=== PATIENT | female | born 1955 | race Caucasian/White ===

== ENCOUNTER 2020-07-29 02:51 | Inpatient (IN) ==
--- NOTE | 2020-07-29 03:16 | ERNOTE ---
Dizziness ER Record Presenting Symptoms: dizziness Time Seen by Provider: 07/29/20 03:01 Source: patient Exam Limitations: no limitations Immunizations: IMMUNIZATION HX Immunizations Up to Date Yes Immunizations Comment Covid History of Influenza Vaccine Yes Hx Pneumococcal Vaccination No Allergies/Adverse Reactions: Allergies Allergy/AdvReac Type Severity Reaction Status Date / Time aspirin Allergy Severe Other Verified 07/29/20 08:11 naproxen sodium [From Aleve] Allergy Severe Anaphylaxis Verified 07/29/20 08:11 NSAIDS (Non-Steroidal Allergy Severe Other Verified 07/29/20 08:11 Anti-Inflamma lisinopril AdvReac Mild Other Verified 07/29/20 08:11 Home Medications: HOME MEDICATIONS losartan 50 mg tablet 50 mg PO DAILY #90 tab 01/24/20 [Last Taken Unknown] - History of Present Illness Narrative: Patient awoke feeling like she needed to use the bathroom but was extremely dizzy. She woke her to help her to the bathroom she began getting naus eous and so dizzy and weak she could not stand. She states initially her hands were tingly bilaterally Timing and Duration: sudden onset Noted on awakening:: Yes Severity: max: severe Severity: currently: mild, moderate Associated Symptoms: Present: nausea Sense of movement: Present: vague Fainted/near fainted while:: Present: sitting Decreased ability to stand/walk:: Present: weak Review of Systems - Review of Systems Constitutional: Present: chills. Absent: recent illness EYE: Absent: vision changes ENT: Absent: nose congestion, nasal drainage Respiratory: Absent: shortness of breath Cardiology: Absent: chest pain Gastrointestinal/Abdominal: Present: nausea, vomiting Genitourinary: Absent: dysuria Musculoskeletal: Absent: back pain, muscle pain, neck pain Skin: Absent: rash Neurological: Present: See HPI. Absent: headache Endocrine: Present: excessive sweating Hematologic/Lymphatic: Absent: easy bruising, easy bleeding Medical History (Last Reviewed 07/29/20 @ 08:10 by Kvng Loco RN) COVID-19 vaccine series completed (Acute) COVID-19 vaccine administered (Acute) Hypertension (Chronic) Onset Date: Unknown Gastroesophageal reflux (Resolved) Onset Date: Unknown Depression (Resolved) Onset Date: Unknown Anxiety (Resolved) Onset Date: Unknown Disorder of endometrium Onset Date: Unknown abnormal appearance Surgical History: Surgical History (Last Reviewed 07/29/20 @ 08:10 by Kvng Loco RN) H/O breast biopsy Onset Date: ~2001 Left breast; benign H/O colonoscopy Onset Date: ~10/2005 WNL H/O hand surgery Onset Date: Unknown cyst removed from left hand History of dilation and curettage Onset Date: ~01/27/16 Dr. Prado FULFILLMENT REPRESENTATIVE bleeding History of hysteroscopy Onset Date: ~01/27/16 Dr. Cain FULFILLMENT REPRESENTATIVE bleeding History of tubal ligation Onset Date: ~1974 also uterine suspension done History of uterine suspension procedure Onset Date: ~1974 Family History: Family History (Last Reviewed 07/29/20 @ 08:10 by Kvng Loco RN) Father , age 78 CHF (congestive heart failure) Brother , infant No problems noted. Brother , age 18 Suicide Sister , age 44 Cancer breast Social History: (Last Reviewed 07/29/20 @ 08:10 by Kvng Loco RN) Social History: adopted: No Marital status: lives independently: Yes household members: spouse current occupational status: employed current occupation: [employer] Highest level of school completed/degree received: high school graduate Service: No Tobacco: Smoking Status: Current every day smoker Alcohol: alcohol intake: current alcohol intake frequency: 3 or more drinks per day Substance Use: substance use type: unknown Dietary Habits: caffeine: Yes Exercise: Physical activity type: walking Physical activity counseling: advised >150 min/week exe How many days of moderate to strenuous exercise, like a brisk walk, did you do in the last 7 days: 7 frequency: daily On those days that you engage in moderate to strenuous exercise, how many minutes, on average, do you exercise: 45 duration: 30-45 minutes/day Physical Exam - Physical Exam General Appearance: Present: wd/wn, alert, mild distress Head Exam: Present: normal inspection, no evidence of injury Eye Exam: Normal inspection: bilateral, PERRL: bilateral, EOMI: bilateral Ears, Nose, Throat: Present: normal ENT inspection Neck: Present: normal inspection, nontender, supple Respiratory: Present: no respiratory distress, normal breath sounds, lungs clear Cardiovascular/Chest: Present: regular rate, rhythm, no murmur Gastrointestinal/Abdominal: Present: normal bowel sounds, nontender, no ndistended, soft Extremity Exam: Present: normal inspection, normal range of motion, no edema Neurological Exam: Present: alert, oriented, normal mood/affect, no motor/sensory deficits, 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 Results and Orders: Laboratory Tests 07/29/20 07/29/20 03:40 03:40 WBC 9.9 Hgb 15.8 Hct 48.3 H Plt Count 193 Sodium 140 Potassium 4.0 Chloride 106 Carbon Dioxide 26.3 BUN 22 Creatinine 1.05 Random Glucose 137 H Calcium 8.6 Total Bilirubin 0.4 AST 13 ALT 16 L Ethyl Alcohol Less than 3.0 - Vital Signs Patient's Vital Signs:: I have reviewed the patient's vital signs. Vital Signs: Vital Signs 07/29/20 02:56 Temperature 35.6 C L Pulse Rate 56 L Respiratory Rate 16 Blood Pressure 92/53 O2 Sat by Pulse Oximetry 91 L - EKG EKG #1 EKG: NSR - bradycardia, premature ventricular contraction, other - prolonged QT 479/ QTc 477 ms EKG #2 EKG: NSR - bradycardia 56 bpm, other - QT 440 EKG read: Interp. by me - CT/Ultrasound CT/Ultrasound Narrative: CT head without: 1. No intracranial hemorrhage, mass-effect or midline shift noted. 2. No acute cerebral edema/infarct noted. 3. No skull fracture noted. 4. No acute sinusitis or mastoiditis noted. - Progress/Reassessment Progress Note-Subjective: 07/29/20 06:[address] Mcleod he agrees with observation admit for hypotension and dizziness. Departure Clinical Impression: Dizziness Hypotension Qualifiers: Hypotension type: unspecified hypotension type Qualified Code(s): I95.9 - Hypotension, unspecified - Departure Disposition: Still a patient Condition: Good
[2020-07-29 03:43] LABS: Hematocrit 48.3 % (37.0-47.0); Hemoglobin 15.8 gm/dL (12.5-16.0); Mean Cell Volume 104.1 fl (78-100); Mean Corpuscular Hemoglobin 34.1 pg (27-31); Mean Corpuscular Hgb Conc 32.7 g/dl (32-36); Mean Platelet Volume 11.3 fl (8-12.5); Neutrophil # 7.4 K/mm3 (1.3-6.0); Platelet Count 193 K/mm3 (150-450); Red Blood Count 4.64 M/mm3 (4.2-5.4); Red Cell Distribution Width 13.5 % (11.5-14.0); White Blood Count 9.9 K/mm3 (4.0-10.5)
[2020-07-29 03:58] LABS: ALT 16 U/L (19-67); AST 13 U/L (0-48); Albumin * 3.5 gm/dl (3.4-5.0); Alkaline Phosphatase * 94 U/L (50-170); Anion Gap 11.7 mmol/L (6.8-13.8); Bilirubin, Total 0.4 mg/dL (0.0-1.1); Blood Urea Nitrogen 22 mg/dL (3-23); Ca. Corrected For Albumin 8.7 mg/dL (8.4-10.2); Calcium * 8.6 mg/dL (7.9-10.9); Carbon Dioxide 26.3 mmol/L (24-32.6); Chloride 106 mmol/L (97-106); Glucose * 137 mg/dL (70-110); Sodium 140 mmol/L (132-142); Total Protein 6.6 gm/dL (6.2-8.2)
[2020-07-29] MEDS ORDERED: NORMAL SALINE 1,000 ML IV ONE ×2 (04:11→05:15)
[2020-07-29 05:56] LABS: Urine Bilirubin Negative (NEGATIVE); Urine Ketone Negative (NEGATIVE); Urine Nitrite Negative (NEGATIVE); Urine Protein 15 mg/dL (NEGATIVE); Urine Specific Gravity 1.015 SP.GR. (1.005-1.010); Urine Urobilinogen Normal (NORMAL); Urine pH 6.5 pH (5.0-7.0)
[2020-07-29 06:09] LABS: Cocaine Ur Negative (NEGATIVE); Urine Barbiturate Negative (NEGATIVE); Urine Benzodiazepines Negative (NEGATIVE); Urine Opiates Negative (NEGATIVE); Urine PCP Negative (NEGATIVE); Urine THC Negative (NEGATIVE)
[2020-07-29 06:10] LABS: Urine Appearance Clear (CLEAR); Urine Blood 10 /ul (NEGATIVE); Urine Color Yellow; Urine WBC None Seen /hpf (0-5)
[2020-07-29 06:11] LABS: Urine Bacteria None Seen; Urine RBC TRACE /hpf (0-5)
--- NOTE | 2020-07-29 08:56 | HP ---
Chief Complaint - Chief Complaint Date of Service: 07/29/20 Time of Service: 08:55 Chief Complaint: dizziness History of Present Illness: Belen Hayward is a 65-year-old white female with past medical history of hypertension who was admitted on 07/29/2020 for severe dizziness. The patient awoke around 1 AM in the morning to go to the bathroom and she started feeling dizzy and flushed. She went back to her bed and laid down. Her was going to the bathroom too and she asked him to help her go to the bathroom and she urinated . She felt like she was going to pass out and her surrounding was getting cloudy. She said she felt her hands were itchy. She felt also nauseous and felt so weak so much so she could not stand. They called EMS and they found her on the floor with low blood pressure and low heart rate. They gave her Zofran for nausea and in the emergency room she was given IV fluids. She denied any chest pains, palpitations, slurring of speech, focal weakness, abdominal pain but admitted to diaphoresis. Her white blood cell count was normal, hemoglobin of 15.8, MCV of 104, platelet of 193, electrolytes were normal, creatinine 1.05 with a GFR of 56, random blood sugar 137, liver function test within normal limits, urinalysis showed no evidence of urinary tract infection. She had a large bowel movement in the emergency room and did not case streak of blood. Her stool for occult blood was positive. She was admitted for observation and further evaluation. Medical History (Last Reviewed 07/29/20 @ 08:10 by Kvng Loco RN) COVID-19 vaccine series completed (Acute) COVID-19 vaccine administered (Acute) Hypertension (Chronic) Onset Date: Unknown Gastroesophageal reflux (Resolved) Onset Date: Unknown Depression (Resolved) Onset Date: Unknown Anxiety (Resolved) Onset Date: Unknown Disorder of endometrium Onset Date: Unknown abnormal appearance Surgical History: Surgical History (Last Reviewed 07/29/20 @ 08:10 by Kvng Loco RN) H/O breast biopsy Onset Date: ~2001 Left breast; benign H/O colonoscopy Onset Date: ~10/2005 WNL H/O hand surgery Onset Date: Unknown cyst removed from left hand History of dilation and curettage Onset Date: ~01/27/16 Dr. Ssteffensmeier MASTER GLAZIER bleeding History of hysteroscopy Onset Date: ~01/27/16 Dr. Cain MASTER GLAZIER bleeding History of tubal ligation Onset Date: ~1974 also uterine suspension done History of uterine suspension procedure Onset Date: ~1974 Family History: Family History (Last Reviewed 07/29/20 @ 08:10 by Kvng Loco RN) Father , age 78 CHF (congestive heart failure) Brother , infant No problems noted. Brother , age 18 Suicide Sister , age 44 Cancer breast Social History: (Last Reviewed 07/29/20 @ 08:10 by Kvng Loco RN) Social History: adopted: No Marital status: lives independently: Yes household members: spouse current occupational status: employed current occupation: director of plant operations Highest level of school completed/degree received: high school graduate Service: No Tobacco: Smoking Status: Current every day smoker Alcohol: alcohol intake: current alcohol intake frequency: 3 or more drinks per day Substance Use: substance use type: unknown Dietary Habits: caffeine: Yes Exercise: Physical activity type: walking Physical activity counseling: advised >150 min/week exe How many days of moderate to strenuous exercise, like a brisk walk, did you do in the last 7 days: 7 frequency: daily On those days that you engage in moderate to strenuous exercise, how many minutes, on average, do you exercise: 45 duration: 30-45 minutes/day Review Of Systems (GEN) - Review of Systems Generalized/Overall Review: Present: Weakness. Absent: Chills, Fever EENTM: Present: Blurred Vision Respiratory: Absent: Cough, Shortness of Breath, Orthopnea Cardiac: Absent: Chest Pain, Edema, Palpitations Abdominal: Present: Nausea, Other - blood streaked stool. Absent: Vomiting, Hematemesis Genitourinary: Absent: Urgency, Frequency Musculoskeletal: Absent: Joint Pain Neurological: Absent: Headache Misc: All systems neg except as marked Immunizations: IMMUNIZATION HX Immunizations Up to Date Yes Immunizations Comment Covid History of Influenza Vaccine Yes Hx Pneumococcal Vaccination No Allergies/Adverse Reactions: Allergies Allergy/AdvReac Type Severity Reaction Status Date / Time aspirin Allergy Severe Other Verified 07/29/20 08:11 naproxen sodium [From Aleve] Allergy Severe Anaphylaxis Verified 07/29/20 08:11 NSAIDS (Non-Steroidal Allergy Severe Other Verified 07/29/20 08:11 Anti-Inflamma lisinopril AdvReac Mild Other Verified 07/29/20 08:11 Home Medications: HOME MEDICATIONS losartan 50 mg tablet 50 mg PO DAILY #90 tab 01/24/20 [Last Taken Unknown] Exam - Exam Vital Signs: Vital Signs - Last Taken Temp 37.1 C 07/29/20 08:12 Pulse 87 07/29/20 08:12 Resp 20 07/29/20 08:12 BP 115/83 07/29/20 08:12 Pulse Ox 100 07/29/20 08:12 Constitutional: Present: Alert, Oriented x3, Cooperative ENT Exam: Present: hearing grossly normal Eye Exam: bilateral eye: normal inspection, PERRL, EOMI Neck: Present: supple. 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 Absent: facial droop, motor weakness, sensory deficit Diagnostic Studies: Abnormal Lab Results 07/29/20 07/29/20 07/29/20 Range/Units 03:40 03:40 04:55 Hct 48.3 H (37.0-47.0) % MCV 104.1 H (78-100) fl MCH 34.1 H (27-31) pg Immature Gran % (Auto) 0.50 H (0.001-0.429) % Immature Gran # (Auto) 0.05 H (0.000-0.0310) K/mm3 Neutrophils # 7.4 H (1.3-6.0) K/mm3 Est GFR (Non-Af Amer) 56 L D (60-130) mL/min Random Glucose 137 H (70-110) mg/dL ALT 16 L (19-67) U/L Urine Protein (NEGATIVE) mg/dL Urine Blood (NEGATIVE) /ul Stool Occult Blood Positive H 07/29/20 Range/Units 05:30 Hct (37.0-47.0) % MCV (78-100) fl MCH (27-31) pg Immature Gran % (Auto) (0.001-0.429) % Immature Gran # (Auto) (0.000-0.0310) K/mm3 Neutrophils # (1.3-6.0) K/mm3 Est GFR (Non-Af Amer) (60-130) mL/min Random Glucose (70-110) mg/dL ALT (19-67) U/L Urine Protein 15 H (NEGATIVE) mg/dL Urine Blood 10 H (NEGATIVE) /ul Stool Occult Blood Laboratory Results WBC 9.9 K/mm3 (4.0-10.5) 07/29/20 03:40 RBC 4.64 M/mm3 (4.2-5.4) 07/29/20 03:40 Hgb 15.8 gm/dL (12.5-16.0) 07/29/20 03:40 Hct 48.3 % (37.0-47.0) H 07/29/20 03:40 MCV 104.1 fl (78-100) H 07/29/20 03:40 MCH 34.1 pg (27-31) H 07/29/20 03:40 MCHC 32.7 g/dl (32-36) 07/29/20 03:40 RDW 13.5 % (11.5-14.0) 07/29/20 03:40 Plt Count 193 K/mm3 (150-450) 07/29/20 03:40 MPV 11.3 fl (8-12.5) 07/29/20 03:40 Immature Gran % (Auto) 0.50 % (0.001-0.429) H 07/29/20 03:40 Immature Gran # (Auto) 0.05 K/mm3 (0.000-0.0310) H 07/29/20 03:40 Neutrophils % 75.0 % (42-75.0) 07/29/20 03:40 Lymphocytes % 20.4 % (20-51) 07/29/20 03:40 Monocytes % 3.1 % (0.0-9) 07/29/20 03:40 Eosinophils % 0.8 % (0.0-3.0) 07/29/20 03:40 Basophils % 0.2 % (0.0-1.0) 07/29/20 03:40 Nucleated RBC % 0.0 k/mm3 (0-1) 07/29/20 03:40 Neutrophils # 7.4 K/mm3 (1.3-6.0) H 07/29/20 03:40 Lymphocytes # 2.01 k/mm3 (1.5-3.5) 07/29/20 03:40 Monocytes # 0.3 k/mm3 (0.0-1.0) 07/29/20 03:40 Eosinophils # 0.1 k/mm3 (0.0-0.7) 07/29/20 03:40 Absolute Basophils 0.0 k/mm3 (0.0-0.1) 07/29/20 03:40 Sodium 140 mmol/L (132-142) 07/29/20 03:40 Plasma Sodium 141 mmol/L (130-142) 07/29/20 03:40 Potassium 4.0 mmol/L (3.4-4.6) 07/29/20 03:40 Chloride 106 mmol/L (97-106) 07/29/20 03:40 Carbon Dioxide 26.3 mmol/L (24-32.6) 07/29/20 03:40 Anion Gap 11.7 mmol/L (6.8-13.8) 07/29/20 03:40 BUN 22 mg/dL (3-23) 07/29/20 03:40 Creatinine 1.05 mg/dL (0.4-1.4) 07/29/20 03:40 Est GFR (Non-Af Amer) 56 mL/min (60-130) L D 07/29/20 03:40 BUN/Creatinine Ratio 21.0 (9.0-21.6) 07/29/20 03:40 Random Glucose 137 mg/dL (70-110) H 07/29/20 03:40 Calcium 8.6 mg/dL (7.9-10.9) 07/29/20 03:40 Calcium Adj for Albumin 8.7 mg/dL (8.4-10.2) 07/29/20 03:40 Magnesium 1.7 mg/dL (1.2-2.8) 07/29/20 03:40 Total Bilirubin 0.4 mg/dL (0.0-1.1) 07/29/20 03:40 AST 13 U/L (0-48) 07/29/20 03:40 ALT 16 U/L (19-67) L 07/29/20 03:40 Alkaline Phosphatase 94 U/L (50-170) 07/29/20 03:40 Troponin I Less than 0.017 ng/mL (0.00-0.10) 07/29/20 03:40 Total Protein 6.6 gm/dL (6.2-8.2) 07/29/20 03:40 Albumin 3.5 gm/dl (3.4-5.0) 07/29/20 03:40 Urine Color Yellow 07/29/20 05:30 Urine Appearance Clear (CLEAR) 07/29/20 05:30 Urine pH 6.5 pH (5.0-7.0) 07/29/20 05:30 Ur Specific [place] 1.015 SP.GR. (1.005-1.010) 07/29/20 05:30 Urine Protein 15 mg/dL (NEGATIVE) H 07/29/20 05:30 Urine Glucose (UA) Negative mg/dL (NEGATIVE) 07/29/20 05:30 Urine Ketones Negative mg/dL (NEGATIVE) 07/29/20 05:30 Urine Blood 10 /ul (NEGATIVE) H 07/29/20 05:30 Urine Nitrate Negative (NEGATIVE) 07/29/20 05:30 Urine Bilirubin Negative mg/dl (NEGATIVE) 07/29/20 05:30 Urine Urobilinogen Normal EU/dl (NORMAL) 07/29/20 05:30 Ur Leukocyte Esterase Negative /ul (NEGATIVE) 07/29/20 05:30 Urine RBC Trace /hpf (0-5) 07/29/20 05:30 Urine WBC None seen /hpf (0-5) 07/29/20 05:30 Ur Epithelial Cells 0-5 /hpf (0-5) 07/29/20 05:30 Urine Bacteria None seen (NONE) 07/29/20 05:30 Urine Culture Comments No culture indicated 07/29/20 05:30 Stool Occult Blood Positive H 07/29/20 04:55 Urine Opiates Screen Negative (NEGATIVE) 07/29/20 05:30 Barbiturate Screen Negative (NEGATIVE) 07/29/20 05:30 Ur Phencyclidine Scrn Negative (NEGATIVE) 07/29/20 05:30 Urine Amphetamine Negative (NEGATIVE) 07/29/20 05:30 U Benzodiazepines Scrn Negative (NEGATIVE) 07/29/20 05:30 Urine Cocaine Screen Negative (NEGATIVE) 07/29/20 05:30 Urine Marijuana (THC) Negative (NEGATIVE) 07/29/20 05:30 Ethyl Alcohol Less than 3.0 mg/dL (0.0-10.0) 07/29/20 03:40 SARS-CoV-2 (PCR) Not detected (NotDetected) 07/29/20 06:33 Assessment/Plan - Narrative Narrative: Belen is a 65-year-old white female who was admitted for dizziness and found to have low blood pressure and bradycardic. She also felt like she was going to pass out. She likely could have had micturition presyncopal attack or an orthostatic hypotension. The fact that she has blood-streaked stool could point to a GI bleed. We will keep patient n.p.o., do serial H&H, keep her on IV fluids. Will do orthostatic VS.. We will get a surgical consult. She continues to have low blood pressure we will need to transfer her to the ICU unit. Addendum: Patient was noted by KAIAWHINA KURA KAUPAPA MAORI that she had a pretty good amount of bright red blood when she went to the restroom. The patient denies any NSAIDs however admits to drinking 6 cans of hard seltzers a day. Last colonoscopy was 2005 but I cannot find the result. - Assessment/Plan (1) Dizziness Problem: Acute (2) Pre-syncope Problem: Acute (3) Hypotension Problem: Acute Qualifiers: Hypotension type: unspecified hypotension type Qualified Code(s): I95.9 - Hypotension, unspecified (4) Bright red rectal bleeding Assessment: GI bleedupper GIB versus lower GI bleed. Problem: Acute (5) HTN (hypertension) Problem: Chronic Qualifiers: Hypertension type: essential hypertension Qualified Code(s): I10 - Essential (primary) hypertension
[2020-07-29] MEDS: NORMAL SALINE 1,000 ML IV PRN ×2 (11:07→19:30)
[2020-07-29 11:17] LABS: Hematocrit 39.9 % (37.0-47.0); Hemoglobin 13.4 gm/dL (12.5-16.0)
[2020-07-29] MEDS: PANTOPRAZOLE SODIUM 40 MG in NORMAL SALINE 100 ML IV SCH (11:32)
[2020-07-29 15:20] LABS: Hematocrit 39.6 % (37.0-47.0); Hemoglobin 12.9 gm/dL (12.5-16.0)
[2020-07-29 19:06] LABS: Hematocrit 38.1 % (37.0-47.0); Hemoglobin 12.6 gm/dL (12.5-16.0)
[2020-07-30] MEDS: NORMAL SALINE 1,000 ML IV PRN (03:33)
[2020-07-30 07:25] LABS: Hematocrit 37.4 % (37.0-47.0); Hemoglobin 12.4 gm/dL (12.5-16.0); Mean Cell Volume 102.5 fl (78-100); Mean Corpuscular Hgb Conc 33.2 g/dl (32-36); Mean Platelet Volume 11.1 fl (8-12.5); Neutrophil # 9.5 K/mm3 (1.3-6.0); Neutrophil % 81.1 % (42-75.0); Platelet Count 139 K/mm3 (150-450); Red Blood Count 3.65 M/mm3 (4.2-5.4); Red Cell Distribution Width 13.3 % (11.5-14.0); White Blood Count 11.7 K/mm3 (4.0-10.5)
[2020-07-30 07:31] LABS: BUN/Creatinine Ratio 10.8 (9.0-21.6); Calcium * 7.8 mg/dL (7.9-10.9); Carbon Dioxide 21.8 mmol/L (24-32.6); Potassium 3.8 mmol/L (3.4-4.6)
--- NOTE | 2020-07-30 08:24 | PN ---
Fito Note - Interim Date: 07/30/20 Time: 08:23 Narrative: 07/30/20 08:23 still blood in stool this morning. HB though has stabilized in the 12's. She however says she is weak and lightheaded when she stands up. We will give her 1 unit of packed RBC and the indication for blood transfusion is ongoing GI bleed and decreasing hematocrit of more than 4% in 24 hours. We will do orthostatics. We will restart her blood pressure medication if she is no longer having orthostatic hypotension like yesterday. She was admitted for observation. Possible discharge today but she will need EGD/colonoscopy as an outpatient. She had her colonoscopy when she was 48 years old and it was normal. The follow-up was 10 years after however she refused further follow-up colonoscopies since then. 07/30/20 11:15 Addendum: She is no longer orthostatic. We will restart her losartan.
[2020-07-30] MEDS: PANTOPRAZOLE SODIUM 40 MG in NORMAL SALINE 100 ML IV SCH (10:25)
[2020-07-30] MEDS: LOSARTAN POTASSIUM 50 MG TABLET PO SCH (11:54)
[2020-07-30 15:54] LABS: Hematocrit 39.6 % (37.0-47.0)
--- NOTE | 2020-07-30 17:28 | PN ---
Subjective - Date and Time Seen Date: 07/30/20 Time: 17:22 Subjective Narrative: still has BRBPR but significantly less. Objective - Review of Systems Generalized/Overall Review: Reports: Weakness. Denies: Chills, Fever EENTM: Denies: Blurred Vision Respiratory: Denies: Cough, Shortness of Breath, Orthopnea Cardiac: Denies: Chest Pain, Edema, Palpitations Abdominal: Reports: Abdominal Pain, Bright blood from rectum. Denies: Nausea, Vomiting Genitourinary Symptoms: Denies: Urgency, Frequency Musculoskeletal Complaints: Denies: Joint Pain Neurological: Denies: Headache Skin: Denies: Lesions, Rash Misc: All systems neg except as marked - Vitals Vitals: Last Vital Signs Temp 36.7 C 07/30/20 14:48 Pulse 69 07/30/20 14:48 Resp 16 07/30/20 14:48 BP 163/87 H 07/30/20 14:48 Pulse Ox 96 07/30/20 14:48 - Abnormal Lab Findings Abnormal Lab Findings: Abnormal Lab Results 07/29/20 07/30/20 07/30/20 Range/Units 19:00 07:15 07:15 WBC 11.7 H (4.0-10.5) K/mm3 RBC 3.65 L (4.2-5.4) M/mm3 Hgb 12.4 L (12.5-16.0) gm/dL MCV 102.5 H (78-100) fl MCH 34.0 H (27-31) pg Plt Count 139 L (150-450) K/mm3 Immature Gran # (Auto) 0.05 H (0.000-0.0310) K/mm3 Neutrophils % 81.1 H (42-75.0) % Lymphocytes % 11.8 L (20-51) % Neutrophils # 9.5 H (1.3-6.0) K/mm3 Lymphocytes # 1.38 L (1.5-3.5) k/mm3 Chloride 107 H (97-106) mmol/L Carbon Dioxide 21.8 L (24-32.6) mmol/L Anion Gap 14.0 H (6.8-13.8) mmol/L Calcium 7.8 L (7.9-10.9) mg/dL Crossmatch See Detail - Exam Constitutional: Present: Alert, Oriented x3, Cooperative ENT Exam: Present: hearing grossly normal Neck: Present: supple. Absent: lymphadenopathy (R), lymphadenopathy (L) Respiratory: Present: lungs clear, No rales, No wheezing Cardiovascular/Chest: Present: regular rate, rhythm, no JVD, no murmur Abdomen: Present: soft, nondistended, tender - Slightly Extremity: Present: no calf tenderness. Absent: lower extremity edema Assessment/Plan Plan Narrative: Belen still had blood in stool this morning. Hb though has stabilized in the 12's. She however says she is weak and lightheaded when she stands up. We will give her 1 unit of packed RBC and the indication for blood transfusion is ongoing GI bleed and decreasing hematocrit of more than 4% in 24 hours. We will do orthostatics. We will restart her blood pressure medication if she is no longer having orthostatic hypotension like yesterday. She was admitted for observation. Possible discharge today but she will need EGD/colonoscopy as an outpatient. She had her colonoscopy when she was 48 years old and it was normal. The follow-up was 10 years after however she refused further follow-up colonoscopies since then. 07/30/20 11:15 Addendum: She is no longer orthostatic. We will restart her losartan. 07/30/20 4:26 She says she still has some blood in her stool but significantly less. Will extend her observation for tonight. If Dr. Gomez is back from his vacation tomorrow we will get a consult and see if he can do an endoscopic procedure. It for bleeding stops we will schedule this as an outpatient. - Problems/Diagnosis (1) GI bleed Problem: Acute Narrative: Lower GI bleed versus upper GI bleed (2) Bright red rectal bleeding Problem: Acute (3) Dizziness Problem: Resolved (4) Pre-syncope Problem: Resolved (5) Hypotension Problem: Resolved Qualifiers: Hypotension type: unspecified hypotension type Qualified Code(s): I95.9 - Hypotension, unspecified (6) HTN (hypertension) Problem: Chronic Qualifiers: Hypertension type: essential hypertension Qualified Code(s): I10 - Ess ential (primary) hypertension
[2020-07-31 06:38] LABS: Hematocrit 41.9 % (37.0-47.0); Hemoglobin 13.9 gm/dL (12.5-16.0); Mean Cell Volume 101.2 fl (78-100); Mean Corpuscular Hemoglobin 33.6 pg (27-31); Mean Corpuscular Hgb Conc 33.2 g/dl (32-36); Mean Platelet Volume 11.3 fl (8-12.5); Neutrophil # 8.4 K/mm3 (1.3-6.0); Neutrophil % 76.9 % (42-75.0); Platelet Count 136 K/mm3 (150-450); Red Blood Count 4.14 M/mm3 (4.2-5.4); Red Cell Distribution Width 14.1 % (11.5-14.0); White Blood Count 10.9 K/mm3 (4.0-10.5)
[2020-07-31 06:42] LABS: Anion Gap 12.5 mmol/L (6.8-13.8); BUN/Creatinine Ratio 6.4 (9.0-21.6); Calcium * 8.3 mg/dL (7.9-10.9); Carbon Dioxide 24.2 mmol/L (24-32.6); Estimated Creat Clear 68.1; Potassium 3.7 mmol/L (3.4-4.6)
--- NOTE | 2020-07-31 08:24 | PN ---
Fito Note - Interim Date: 07/31/20 Time: 08:24 Narrative: 07/31/20 08:23 Patient still has blood with BM. Dr. Gomez is back today from vacation. and will see patient for possible endoscopy. with her H/o of chronic alcohol intake varices but I will expect more of hematemesis as well.
--- NOTE | 2020-07-31 09:27 | CONS ---
[facility] - General Date of Service: 07/31/20 Narrative: She was admitted 07/29/20 after an episone of near syncopy. CT scan in the ER was negative. She did have a streak of blood on bowel movement which was heme positive. Since admission she has had multiple bloody bowel movements, decreasing in f requency and amount. The last time she went to the bathroom there was only a small amount of blood in the bottom of the bowl. She has only had clear liquids since 07/28/20. Her hemoglobin decreased slightly. Her white blood cell count is slightly elevated. The patient awoke around 1 AM in the morning to go to the bathroom and she started feeling dizzy and flushed. She went back to her bed and laid down. Her was going to the bathroom too and she asked him to help her go to the bathroom and she urinated . She felt like she was going to pass out and her surroundings was getting cloudy. She said she felt her hands were itchy. She felt also nauseous and felt so weak so much so she could not stand. They called EMS and they found her on the floor with low blood pressure and low heart rate. She states in retrospect, she had some crampy lower abdominal pain the night before this happened. She admits to more heartburn recently but no dysphagia. She does consume alcohol on a daily basis. Last colonoscopy was 17 years ago and she reports it was normal Source: patient, family, RN/MD, RN notes reviewed, old records Exam Limitations: no limitations - History of Present Illness Timing/Duration: other - see above Associated Symptoms: other - dizziness and weakness initially, itching in hands with initial episode Allergies/Adverse Reactions: Allergies aspirin Allergy (Severe, Verified 07/29/20 08:11) Other Told not to take due to anaphylaxis with Aleve naproxen sodium [From Aleve] Allergy (Severe, Verified 07/29/20 08:11) Anaphylaxis NSAIDS (Non-Steroidal Anti-Inflamma Allergy (Severe, Verified 07/29/20 08:11) Other Told not to take due to anaphylaxis reaction to Aleve lisinopril Adverse Reaction (Mild, Verified 07/29/20 08:11) Other Cough Home Medications: Home Medications Medication Instructions Recorded Last Taken losartan 50 mg tablet 50 mg PO DAILY #90 tab 01/24/20 Unknown Procedures Extraction of Endometrium, Via Natural or Artificial Opening Endoscopic, Diagnostic (01/27/16) Local excision of lesion of breast (06/16/01) Medications - Medications Current Medications: Current Medications Pantoprazole Sodium 40 mg/ (Sodium Chloride) 100 mls @ 400 mls/hr IV Q24H SHANIKA Stop: 08/28/20 11:01 Last Infusion: 07/30/20 10:42 Dose: Infused Documented by: Losartan Potassium (Losartan Potassium 50 Mg Tablet) 50 mg PO DAILY SHANIKA Stop: 08/29/20 11:16 Last Admin: 07/30/20 11:54 Dose: 50 mg Documented by: Review of Systems - Review of Systems Generalized/Overall Review: Present: Fatigue. Absent: Chills, Fever EENTM: Present: No Symptoms Reported Respiratory: Present: No Symptoms Reported. Absent: Cough, Shortness of Breath Cardiac: Absent: Chest Pain, Palpitations Abdominal: Present: Bright blood from rectum - getting much less Genitourinary: Present: No Symptoms Reported Musculoskeletal: Present: No Symptoms Reported Neurological: Present: No Symptoms Reported, Other - previous presyncopal symptoms and hand itching resolved Skin: Present: No Symptoms Reported Endocrine: Present: No Symptoms Reported Physical Examination - Exam Vital Signs: Vital Signs - Last Taken Temp 36.5 C 07/31/20 06:45 Pulse 66 07/31/20 06:45 Resp 22 H 07/31/20 06:45 BP 169/96 H 07/31/20 06:45 Pulse Ox 96 07/31/20 06:45 O2 Oxygen Delivery Method Room Air Constitutional: Present: Alert, Oriented x3, Cooperative, Well developed, Well nourished, No distress ENT Exam: Present: normal ENT inspection Eye Exam: bilateral eye: normal inspection Neck: Present: full range of motion, normal inspection Breasts: Present: Exam deferred Respiratory: Present: normal breath sounds Cardiovascular/Chest: Present: regular rate, rhythm Abdomen: Present: other - somewhat protuberant, but soft without tenderness /Rectal: Present: Exam deferred Extremity: Present: normal range of motion, normal inspection Skin Exam: Present: normal color, warm/dry Neurologic: Present: ambulatory service representative II-XII nml as tested, no motor/sensory deficits, normal mood/affect, oriented x 3 Appearance: Present: appropriate appearance, appropriate insight, neat, no memory impairment Eye contact: Present: cooperative, good eye contact, normal speech Thoughts: Present: normal thought pattern - Results and Findings: Lab/Microbiology results last 24 hrs: Abnormal/Pending Laboratory Last 24 HRS 07/31/20 07/31/20 07/29/20 06:33 06:33 19:00 WBC 10.9 H RBC 4.14 L MCV 101.2 H MCH 33.6 H RDW 14.1 H Plt Count 136 L Immature Gran # (Auto) 0.04 H Neutrophils % 76.9 H Lymphocytes % 14.8 L Neutrophils # 8.4 H Chloride 108 H BUN/Creatinine Ratio 6.4 L Crossmatch See Detail Culture 07/29/20 04:12 Blood Culture - Preliminary Blood NO GROWTH AFTER 48 HOURS 07/29/20 03:40 Blood Culture - Preliminary Blood NO GROWTH AFTER 48 HOURS - Assessments/Findings (1) GI bleed Diagnosis(s): She is currently stable. She has had some GERD and does drink alcohol regularly so although she could have an UGI source, her BUN has been normal. The bright red nature of the bleeding could be from diverticular bleeding or colitis, less likely polyp or cancer. Her last colon exam was 17 years ago so she is due for colonoscopy. Pamphlets on EGD and GERD as well as colonoscopy and colon screening were reviewed with her and given to her. The risks and possible complications of the procedures were explained and discussed in detail. I did explain that without a formal colon prep her exam may be suboptimal for small polyps, however would exclude a gross bleeding source. After interactive discussion her questions were answered to her apparent satisfaction and she has given informed consent for EGD and colonoscopy. Problem: Acute
[2020-07-31] MEDS: LOSARTAN POTASSIUM 50 MG TABLET PO SCH ×2 (09:50→21:36)
--- NOTE | 2020-07-31 10:52 | ANES ---
Anesthesia Pre Procedure Eval Vitals/Labs: Last Vital Signs Temp 36.5 C 07/31/20 10:12 Pulse 72 07/31/20 10:12 Resp 18 07/31/20 10:12 BP 162/101 H 07/31/20 10:12 Pulse Ox 97 07/31/20 10:12 HOME MEDICATIONS losartan 50 mg tablet 50 mg PO DAILY #90 tab 01/24/20 [Last Taken Unknown] Allergies/Adverse Reactions: Allergies Allergy/AdvReac Type Severity Reaction Status Date / Time aspirin Allergy Severe Other Verified 07/29/20 08:11 naproxen sodium [From Aleve] Allergy Severe Anaphylaxis Verified 07/29/20 08:11 NSAIDS (Non-Steroidal Allergy Severe Other Verified 07/29/20 08:11 Anti-Inflamma lisinopril AdvReac Mild Other Verified 07/29/20 08:11 - Planned Procedure Planned Procedure: EGD colonscopy Medication List Reviewed:: Yes Allergies Verified: Yes Medical History (Last Reviewed 07/31/20 @ 10:48 by Darren Arias CRNA) COVID-19 vaccine series completed (Acute) COVID-19 vaccine administered (Acute) Hypertension (Chronic) Onset Date: Unknown Gastroesophageal reflux (Resolved) Onset Date: Unknown Depression (Resolved) Onset Date: Unknown Anxiety (Resolved) Onset Date: Unknown Disorder of endometrium Onset Date: Unknown abnormal appearance Surgical History (Last Reviewed 07/31/20 @ 10:48 by Darren Arias CRNA) H/O breast biopsy Onset Date: ~2001 Left breast; benign H/O colonoscopy Onset Date: ~10/2005 WNL H/O hand surgery Onset Date: Unknown cyst removed from left hand History of dilation and curettage Onset Date: ~01/27/16 Dr. Pardo POST MANAGER bleeding History of hysteroscopy Onset Date: ~01/27/16 Dr. Cain POST MANAGER bleeding History of tubal ligation Onset Date: ~1974 also uterine suspension done History of uterine suspension procedure Onset Date: ~1974 Family History (Last Reviewed 07/31/20 @ 10:48 by Darren Arias CRNA) Father , age 78 CHF (congestive heart failure) Brother , No problems noted. Brother , age 18 Suicide Sister , age 44 Cancer breast - Family Anesthesia History Family History:: no untoward family reactions to anesthesia, no familial bleeding tendencies, no family history of clotting disorders, no family history of premature - Airway/Neck/Teeth Within Normal Limits:: Yes Neck Exam: full range of motion Mallampatti Score: 2 Thyromental (T-M) distance: > 6 cm Mandibulo Hyoid distance: > 3 cm - Respiratory Respiratory Physical: rhonchi Smoking Status: Current every day smoker - quit 3 days Sleep Apnea currently treated: No Sleep Apnea by current assessment: No - Cardiovascular Cardiac History: hypertension Tolerate Activity: Fair Heart Sounds: S1 & S2, Regular - Gastrointestinal NPO since: broth and jello 0800? - Anesthesia Assessment and Plan ASA Class: PS, II, E Anesthesia Type Plan: MAC
[2020-07-31] MEDS ORDERED: LIDOCAINE HCL 20 ML VIAL ONE (10:59)
[2020-07-31] MEDS ORDERED: PROPOFOL VIAL IV ONE (10:59)
--- NOTE | 2020-07-31 12:51 | ANES ---
Post Anesthesia Discharge - Transfer of Care Transfer of Care handoff given to nurse: Yes - Discharge to ASU Discharge to ASU-no complications/pt stable: Yes - in room as ASU.
[2020-07-31] MEDS: PANTOPRAZOLE SODIUM 40 MG in NORMAL SALINE 100 ML IV SCH (12:58)
[2020-07-31] MEDS ORDERED: LABETALOL HCL 5 MG/ML VIAL IV ONE (13:32)
[2020-07-31] MEDS: PIPERACILLIN SODIUM/TAZOBACTAM 3.375 GM in DEXTROSE 5 % IN WATER 100 ML IV SCH ×4 (14:16→21:38)
[2020-07-31 15:57] LABS: CK Total * 55 U/L (0-259); LD 184 U/L (81-234)
--- NOTE | 2020-07-31 16:04 | PN ---
Subjective - Date and Time Seen Date: 07/31/20 Time: 16:00 Subjective Narrative: Patient had EGD and colonoscopy today. Objective - Review of Systems Generalized/Overall Review: Denies: Weakness, Chills, Fever EENTM: Denies: Blurred Vision Respiratory: Denies: Cough, Shortness of Breath, Wheezing Cardiac: Denies: Chest Pain, Edema, Palpitations Abdominal: Reports: Abdominal Pain - More of abdominal cramping, Bright blood from rectum. Denies: Nausea, Vomiting, Hematemesis Genitourinary Symptoms: Denies: Urgency, Frequency Musculoskeletal Complaints: Denies: Joint Pain Neurological: Denies: Headache Skin: Denies: Lesions, Rash Misc: All systems neg except as marked - Vitals Vitals: Last Vital Signs Temp 36.6 C 07/31/20 13:10 Pulse 64 07/31/20 14:04 Resp 16 07/31/20 13:55 BP 162/84 H 07/31/20 15:17 Pulse Ox 97 07/31/20 13:55 - Abnormal Lab Findings Abnormal Lab Findings: Abnormal Lab Results 07/31/20 07/31/20 Range/Units 06:33 06:33 WBC 10.9 H (4.0-10.5) K/mm3 RBC 4.14 L (4.2-5.4) M/mm3 MCV 101.2 H (78-100) fl MCH 33.6 H (27-31) pg RDW 14.1 H (11.5-14.0) % Plt Count 136 L (150-450) K/mm3 Immature Gran # (Auto) 0.04 H (0.000-0.0310) K/mm3 Neutrophils % 76.9 H (42-75.0) % Lymphocytes % 14.8 L (20-51) % Neutrophils # 8.4 H (1.3-6.0) K/mm3 Chloride 108 H (97-106) mmol/L BUN/Creatinine Ratio 6.4 L (9.0-21.6) - Exam Constitutional: Present: Alert, Oriented x3, Cooperative ENT Exam: Present: hearing grossly normal Neck: Present: supple. Absent: lymphadenopathy (R), lymphadenopathy (L) Respiratory: Present: normal breath sounds, No rales, No wheezing Cardiovascular/Chest: Present: regular rate, rhythm, no JVD, no murmur Abdomen: Present: Normal bowel sounds, soft, nondistended, tender - Slightly tender lower abdominal area Extremity: Present: no calf tenderness. Absent: lower extremity edema Assessment/Plan Plan Narrative: Belen underwent endoscopy today and impression was ischemic colitis. Based on her history it looks more of an acute colonic ischemia rather than an acute small bowel ischemia. Looking back at her history it is probable that patient did have a micturition presyncopal attack which caused a low blood pressure and heart rate decreasing intestinal blood flow on a possible already atherosclerotic blood vessel to her colon causing ischemia. We will get an abdominal x-ray. Consider doing a CT Scan of the abdomen with contrast to see if there is involvement of the right side of the colon which might point to possible SMA occlusion like thromboembolis causing ischemia. Because if she does have she will need to be started on anticoagulation. We will continue with bowel rest, start her on IV antibiotics, IV fluids. We will monitor her abdominal findings and laboratory findings. - Problems/Diagnosis (1) GI bleed Problem: Acute (2) Bright red rectal bleeding Problem: Acute (3) Dizziness Problem: Resolved (4) Pre-syncope Problem: Resolved (5) Hypotension Problem: Resolved Qualifiers: Hypotension type: unspecified hypotension type Qualified Code(s): I95.9 - Hypotension, unspecified (6) HTN (hypertension) Problem: Chronic Qualifiers: Hypertension type: essential hypertension Qualified Code(s): I10 - Essential (primary) hypertension
--- NOTE | 2020-07-31 17:14 | OR ---
Operative Report - Dictated Report Narrative: Operative Report Date of operation: 07/31/2020 Preoperative diagnosis: GI bleeding Postoperative diagnosis: GI bleeding from colitis proximal to 60 cm (pathology pending). Hiatal hernia, gastritis, duodenitis (pathology and CLOtest pending) Operation: EGD with biopsies. Colonoscopy with biopsy Surgeon: Dr Gomez Anesthesia: IVÁN Arias CRNA Indications for procedure: The patient is a 65-year-old female who was brought to the emergency room after a near syncopal episode and placed in observation. She was found to have a heme positive stool and then began having bright red blood per rectum. She has some GERD symptoms. Her last colon exam was 17 years ago. Findings: Bleeding from colitis which started at 60 cm and extended proximally (pathology pending). No evidence of upper GI bleeding however small hiatal hernia/gastritis/duodenitis (pathology and CLOtest pending) Narrative of procedure: The patient was identified preoperatively, and prior to the administration of anesthetic a multidisciplinary timeout was observed EGD: With the patient in the recumbent position, a bite-block was placed, intravenous sedation was administered, and the patient's eyes covered with a towel. The flexible fiberoptic gastroscope was advanced into the posterior pharynx which appeared normal. The supraglottic larynx appeared normal. The cords appeared normal, moved well, and opposed in the midline. The scope was advanced under direct vision into the proximal esophagus which appeared normal. The esophagus appeared freely distensible with normal mucosa. The esophageal mucosa appeared normal down to the gastroesophageal junction which was sharp and noninflamed. The GE junction appeared normally distensible. There was a very small sliding hiatal hernia. The scope was advanced into the stomach proper which was insufflated with air. There was mild yo gastric erythema but no norris ulcerations or neoplastic lesions were appreciated including retroflexed view of the gastric fundus. The scope was redirected toward the pylorus. The pylorus appeared patent. The scope was advanced into the duodenal bulb which appeared normal. The scope was advanced further to the horizontal portion of the duodenum which appeared normal, specifically the villous architecture appeared well preserved and clear bile was present. The scope was slowly withdrawn through the duodenal bulb with confirmation that no active ulcer was present. The scope was withdrawn into the stomach and underwriting account representative biopsies of gastric mucosa obtained for CLOtest and pathology. The biopsy sites were seen to be hemostatic. The insufflated air was removed, the scope withdrawn from the patient, and this portion of the procedure terminated. COLONOSCOPY: The patient was then placed in the left lateral position, and the perineum was inspected. There was no evidence of pilonidal disease or skin breakdown. The external appearance of the anus was normal. Sphincter tone was good. The flexible fiberoptic colonoscope was inserted into the rectum which was insufflated with air. There was some stringy old blood/mucus in the rectum, however the rectal mucosa and submucosal vascular pattern appeared farhana. The evacuation of the colon was seen to be complete enough for diagnostic purposes. The scope was advanced through a tortuous sigmoid colon, which appeared grossly normal. The colonic mucosa appeared normal to approximately 60 cm where conflu ent, circumferential changes of colitis were seen. There was a relatively sharp area of demarcation, and the inflammation extended proximally as far as could be visualized. Biopsies were obtained. The biopsy sites appeared hemostatic. The scope was then slowly withdrawn in a circular fashion so that all aspects of colonic mucosa were inspected. The mucosa distal to 60 cm appeared normal. The haustral architecture appeared well preserved with no evidence of external compression. The mucosa and submucosal vascular pattern distal to 60 cm appeared normal, specifically there was no gross evidence in the rectum to suggest ulcerative colitis. No AV malformations were seen. No norris diverticular openings were demonstrated. A small benign-appearing 3 mm polyp was encountered but removal was deferred until future exam. The scope was gradually withdrawn to the level of the rectum. As much insufflated air as possible was removed. The scope was withdrawn from the patient and the procedu re terminated. The patient tolerated the anesthetic and procedure well without complication and was transferred back to her room awake and in stable condition. Reviewed and electronically signed
[2020-07-31] MEDS: POTASSIUM CHLORIDE 20 MEQ in DEXTROSE 5%-0.5 NORMAL SALINE 990 ML IV SCH (18:31)
[2020-07-31] MEDS: SACCHAROMYCES BOULARDII 250 MG CAPSULE PO SCH (21:41)
[2020-08-01] MEDS: POTASSIUM CHLORIDE 20 MEQ in DEXTROSE 5%-0.5 NORMAL SALINE 990 ML IV SCH ×2 (04:36→17:37)
[2020-08-01] MEDS: PIPERACILLIN SODIUM/TAZOBACTAM 3.375 GM in DEXTROSE 5 % IN WATER 100 ML IV SCH ×6 (04:45→21:50)
[2020-08-01 06:41] LABS: Hematocrit 40.7 % (37.0-47.0); Hemoglobin 13.8 gm/dL (12.5-16.0); Mean Corpuscular Hemoglobin 34.2 pg (27-31); Mean Corpuscular Hgb Conc 33.9 g/dl (32-36); Mean Platelet Volume 11.1 fl (8-12.5); Neutrophil # 5.9 K/mm3 (1.3-6.0); Neutrophil % 74.2 % (42-75.0); Platelet Count 149 K/mm3 (150-450); Red Blood Count 4.03 M/mm3 (4.2-5.4); White Blood Count 7.9 K/mm3 (4.0-10.5)
[2020-08-01 06:53] LABS: Anion Gap 13.9 mmol/L (6.8-13.8); BUN/Creatinine Ratio 4.5 (9.0-21.6); Calcium * 8.6 mg/dL (7.9-10.9); Carbon Dioxide 25.1 mmol/L (24-32.6); Chol/HDL Risk Ratio 2.1 mg/dL (3.3-4.4); Estimated Creat Clear 60.3
[2020-08-01] MEDS ORDERED: DIATRIZOATE MEGLUMINE, SODIUM 30 ML BTL PO ONE (06:59)
--- NOTE | 2020-08-01 08:16 | ANES ---
Post Anesthesia Assessment - Vital Signs Vitals: Last Vital Signs Temp 36.6 C 08/01/20 06:19 Pulse 64 08/01/20 06:19 Resp 20 08/01/20 06:19 BP 150/83 H 08/01/20 06:19 Pulse Ox 94 08/01/20 06:19 Airway Patency: Normal - Mental Status Level Of Consciousness: Awake, Alert - Pain Level Pain Score: 0 - N/V Assessment Nausea/Vomiting Presence: None Dehydration:: No
[2020-08-01] MEDS: SACCHAROMYCES BOULARDII 250 MG CAPSULE PO SCH ×2 (08:30→20:29)
[2020-08-01] MEDS: LOSARTAN POTASSIUM 50 MG TABLET PO SCH ×2 (08:30→20:29)
[2020-08-01] MEDS: PANTOPRAZOLE SODIUM 40 MG in NORMAL SALINE 100 ML IV SCH (12:16)
--- NOTE | 2020-08-01 16:13 | PN ---
Subjective - Date and Time Seen Date: 08/01/20 Time: 15:59 Subjective Narrative: Patient asking if she can her regular diet now. Afebrile. WBC back to normal. Objective - Review of Systems Generalized/Overall Review: Denies: Weakness, Chills, Fever EENTM: Denies: Blurred Vision Respiratory: Denies: Cough, Shortness of Breath, Orthopnea Cardiac: Denies: Chest Pain, Edema, Palpitations Abdominal: Denies: Nausea, Vomiting, Abdominal Pain Genitourinary Symptoms: Denies: Urgency, Frequency Musculoskeletal Complaints: Denies: Joint Pain Skin: Denies: Lesions, Rash Misc: All systems neg except as marked - Vitals Vitals: Last Vital Signs Temp 36.5 C 08/01/20 14:42 Pulse 71 08/01/20 14:42 Resp 14 08/01/20 14:42 BP 156/90 H 08/01/20 14:42 Pulse Ox 96 08/01/20 14:42 - Abnormal Lab Findings Abnormal Lab Findings: Abnormal Lab Results 08/01/20 08/01/20 Range/Units 06:30 06:30 RBC 4.03 L (4.2-5.4) M/mm3 MCV 101.0 H (78-100) fl MCH 34.2 H (27-31) pg Plt Count 149 L (150-450) K/mm3 Lymphocytes % 17.6 L (20-51) % Lymphocytes # 1.39 L (1.5-3.5) k/mm3 Sodium 143 H (132-142) mmol/L Plasma Sodium 143 H (130-142) mmol/L Chloride 108 H (97-106) mmol/L Anion Gap 13.9 H (6.8-13.8) mmol/L BUN/Creatinine Ratio 4.5 L (9.0-21.6) Random Glucose 124 H (70-110) mg/dL HDL Cholesterol 74 H (40-60) mg/dL Cholesterol/HDL Ratio 2.1 L (3.3-4.4) mg/dL - Exam Constitutional: Present: Alert, Oriented x3, Cooperative ENT Exam: Present: hearing grossly normal Neck: Present: supple. Absent: lymphadenopathy (R), lymphadenopathy (L) Respiratory: Present: normal breath sounds, No rales, No wheezing Cardiovascular/Chest: Present: regular rate, rhythm, no JVD, no murmur Abdomen: Present: Normal bowel sounds, soft, nontender, nondistended Extremity: Present: no calf tenderness. Absent: lower extremity edema Assessment/Plan Plan Narrative: Belen was admitted for near syncope, hypertension, bright red blood per rectum and was found to have ischemic colitis on colonoscopy. She was kept on IV fluids, IV antibiotics and clear liquids. Her white blood cell count today is back to normal. Her CT scan of the abdomen showed- IMPRESSION: 1. 1.5 CM CYST IN THE RIGHT LOBE THE LIVER. 2. MILD FATTY INFILTRATION WITHIN THE LIVER. 3. BOWEL WALL THICKENING INVOLVING THE SPLENIC FLEXURE, DESCENDING COLON AND LESS EXTENT THE SIGMOID COLON CONSISTENT WITH A COLITIS. I DO NOT SEE EVIDENCE FOR AIR WITHIN THE BOWEL WALL OR PORTAL VENOUS SYSTEM. THERE IS INFLAMMATION WITHIN THE ADJACENT FAT WITHOUT FOCAL FLUID COLLECTION/ABSCESS. 4. RENAL CYST. 5. SMALL AMOUNT OF FREE FLUID WITHIN THE PELVIS She has acute colonic ischemia likely due to low blood flow to her inferior mesenteric artery-marginal artery of [place]. We will advance her diet to full liquids. If her white blood cell count continues to be normal tomorrow we will progress her diet and possibly discharge her on oral antibiotics. We will sign outpatient to scallop dredger. - Problems/Diagnosis (1) Acute ischemic colitis Problem: Acute (2) GI bleed Problem: Acute (3) Bright red rectal bleeding Problem: Acute (4) Dizziness Problem: Resolved (5) Pre-syncope Problem: Resolved (6) Hypotension Problem: Resolved Qualifiers: Hypotension type: unspecified hypotension type Qualified Code(s): I95.9 - Hypotension, unspecified (7) HTN (hypertension) Problem: Chronic Qualifiers: Hypertension type: essential hypertension Qualified Code(s): I10 - Essential (primary) hypertension
[2020-08-02] MEDS: PIPERACILLIN SODIUM/TAZOBACTAM 3.375 GM in DEXTROSE 5 % IN WATER 100 ML IV SCH ×2 (05:23)
[2020-08-02 06:55] LABS: Hematocrit 41.8 % (37.0-47.0); Hemoglobin 13.9 gm/dL (12.5-16.0); Mean Corpuscular Hemoglobin 33.9 pg (27-31); Mean Corpuscular Hgb Conc 33.3 g/dl (32-36); Mean Platelet Volume 11.2 fl (8-12.5); Neutrophil # 4.4 K/mm3 (1.3-6.0); Neutrophil % 69.9 % (42-75.0); Platelet Count 158 K/mm3 (150-450); Red Cell Distribution Width 13.7 % (11.5-14.0); White Blood Count 6.3 K/mm3 (4.0-10.5)
[2020-08-02 07:07] LABS: Anion Gap 11.5 mmol/L (6.8-13.8); Calcium * 8.7 mg/dL (7.9-10.9); Carbon Dioxide 26.5 mmol/L (24-32.6); Estimated Creat Clear 66.4
[2020-08-02] MEDS: LOSARTAN POTASSIUM 50 MG TABLET PO SCH (08:56)
[2020-08-02] MEDS: SACCHAROMYCES BOULARDII 250 MG CAPSULE PO SCH (08:56)
--- NOTE | 2020-08-02 09:58 | DS ---
(1) Hypotension Problem: Resolved Qualifiers: Hypotension type: unspecified hypotension type Qualified Code(s): I95.9 - Hypotension, unspecified (2) Dizziness Problem: Resolved (3) Pre-syncope Problem: Resolved (4) Bright red rectal bleeding Problem: Resolved (5) GI bleed Problem: Resolved (6) Acute ischemic colitis Problem: Acute (7) HTN (hypertension) Problem: Chronic Qualifiers: Hypertension type: essential hypertension Qualified Code(s): I10 - Essential (primary) hypertension (8) Gastroesophageal reflux Problem: Resolved Qualifiers: Esophagitis presence: esophagitis presence not specified Qualified Code(s): K21.9 - Gastro-esophageal reflux disease without esophagitis Date of Discharge:: 08/02/20 Hospital Course: 65-year-old female admitted for acute colitis, rectal bleeding, and hypertension was evaluated at bedside this morning was found to be afebrile and in no acute distress. Patient has shown a favorable response to her intrahospital care. She reports she only had 1 small residual rectal bleed of scant red blood morning and since then she has not had any recurrence of rectal bleeding. She denies any abdominal pain and is tolerating oral diet without any issues. Physical exam was negative for any abdominal tenderness or distention and the patient had adequate bowel sounds. The patient had abdominal imaging that revealed colitis and since then she was placed on n.p.o. status and diet was subsequently progressed until she was able to tolerate without any issues. She has been treated with IV antibiotics and IV hydration which she has also tolerated without any problems. Therefore given these findings decision to discharge patient home with additional days of p.o. antibiotics to continue treating her colitis and with instructions to follow-up with her PCP in 1 week was made. The patient presents stable vitals and denies any other concerns. Procedures Performed: none Results and Findings: Pending Mircobiology Results 07/29/20 04:12 Blood Blood Culture - Preliminary NO GROWTH AFTER 48 HOURS 07/29/20 03:40 Blood Blood Culture - Preliminary NO GROWTH AFTER 48 HOURS Lab Pending Results 07/29/20 03:40: Sodium 140, Plasma Sodium 141, Potassium 4.0, Chloride 106, Carbon Dioxide 26.3, Anion Gap 11.7, BUN 22, Creatinine 1.05, Est GFR (Non-Af Amer) 56 L D, BUN/Creatinine Ratio 21.0, Random Glucose 137 H, Calcium 8.6, Calcium Adj for Albumin 8.7, Total Bilirubin 0.4, AST 13, ALT 16 L, Alkaline Phosphatase 94, Total Protein 6.6, Albumin 3.5, Ethyl Alcohol Less than 3.0 07/29/20 03:40: WBC 9.9, RBC 4.64, Hgb 15.8, Hct 48.3 H, MCV 104.1 H, MCH 34.1 H, MCHC 32.7, RDW 13.5, Plt Count 193, MPV 11.3, Immature Gran % (Auto) 0.50 H, Immature Gran # (Auto) 0.05 H, Neutrophils % 75.0, Lymphocytes % 20.4, Monocytes % 3.1, Eosinophils % 0.8, Basophils % 0.2, Nucleated RBC % 0.0, Neutrophils # 7.4 H, Lymphocytes # 2.01, Monocytes # 0.3, Eosinophils # 0.1, Absolute Basophils 0.0 07/29/20 03:40: Troponin I Less than 0.017 07/29/20 03:40: Magnesium 1.7 07/29/20 04:55: Stool Occult Blood Positive H 07/29/20 05:30: Urine Color Yellow, Urine Appearance Clear, Urine pH 6.5, Ur Specific [place] 1.015, Urine Protein 15 H, Urine Glucose (UA) Negative, Urine Ketones Negative, Urine Blood 10 H, Urine Nitrate Negative, Urine Bilirubin Negative, Urine Urobilinogen Normal, Ur Leukocyte Esterase Negative, Urine RBC Trace, Urine WBC None seen, Ur Epithelial Cells 0-5, Urine Bacteria None seen, Urine Culture Comments No culture indicated 07/29/20 05:30: Urine Opiates Screen Negative, Barbiturate Screen Negative, Ur Phencyclidine Scrn Negative, Urine Amphetamine Negative, U Benzodiazepines Scrn Negative, Urine Cocaine Screen Negative, Urine Marijuana (THC) Negative 07/29/20 06:33: SARS-CoV-2 (PCR) Not detected 07/29/20 11:06: Hgb 13.4, Hct 39.9 07/29/20 13:00: Hgb 12.9, Hct 39.6 07/29/20 19:00: Hgb 12.6, Hct 38.1 07/29/20 19:00: Blood Type A Positive, Antibody Screen Negative, Crossmatch See Detail 07/30/20 07:15: WBC 11.7 H, RBC 3.65 L, Hgb 12.4 L, Hct 37.4, MCV 102.5 H, MCH 34.0 H, MCHC 33.2, RDW 13.3, Plt Count 139 L, MPV 11.1, Immature Gran % (Auto) 0.40, Immature Gran # (Auto) 0.05 H, Neutrophils % 81.1 H, Lymphocytes % 11.8 L, Monocytes % 5.1, Eosinophils % 1.4, Basophils % 0.2, Nucleated RBC % 0.0, Neutrophils # 9.5 H, Lymphocytes # 1.38 L, Monocytes # 0.6, Eosinophils # 0.2, Absolute Basophils 0.0 07/30/20 07:15: Sodium 139, Plasma Sodium 139, Potassium 3.8, Chloride 107 H, Carbon Dioxide 21.8 L, Anion Gap 14.0 H, BUN 9 D, Creatinine 0.83, Est GFR (N on-Af Amer) 73 D, BUN/Creatinine Ratio 10.8, Random Glucose 102, Calcium 7.8 L 07/30/20 15:49: Hgb 13.0, Hct 39.6 07/31/20 06:33: WBC 10.9 H, RBC 4.14 L, Hgb 13.9, Hct 41.9, MCV 101.2 H, MCH 33.6 H, MCHC 33.2, RDW 14.1 H, Plt Count 136 L, MPV 11.3, Immature Gran % (Auto) 0.40, Immature Gran # (Auto) 0.04 H, Neutrophils % 76.9 H, Lymphocytes % 14.8 L, Monocytes % 5.4, Eosinophils % 2.2, Basophils % 0.3, Nucleated RBC % 0.0, Neutrophils # 8.4 H, Lymphocytes # 1.61, Monocytes # 0.6, Eosinophils # 0.2, Absolute Basophils 0.0 07/31/20 06:33: Sodium 141, Plasma Sodium 141, Potassium 3.7, Chloride 108 H, Carbon Dioxide 24.2, Anion Gap 12.5, BUN 5, Creatinine 0.78, Est GFR (Non-Af Amer) 78, BUN/Creatinine Ratio 6.4 L, Random Glucose 100, Calcium 8.3 07/31/20 12:35: Pathology Specimen Spec to path 07/31/20 15:06: Lactic Acid, Venous 1.0 07/31/20 15:06: Lactate Dehydrogenase 184, Creatine Kinase 55 08/01/20 06:30: WBC 7.9 D, RBC 4.03 L, Hgb 13.8, Hct 40.7, MCV 101.0 H, MCH 34.2 H, MCHC 33.9, RDW 14.0, Plt Count 149 L, MPV 11.1, Immature Gran % (Auto) 0.40, Immature Gran # (Auto) 0.03, Neutrophils % 74.2, Lymphocytes % 17.6 L, Monocytes % 5.2, Eosinophils % 2.2, Basophils % 0.4, Nucleated RBC % 0.0, Neutrophils # 5.9, Lymphocytes # 1.39 L, Monocytes # 0.4, Eosinophils # 0.2, Absolute Basophils 0.0 08/01/20 06:30: Sodium 143 H, Plasma Sodium 143 H, Potassium 4.0, Chloride 108 H, Carbon Dioxide 25.1, Anion Gap 13.9 H, BUN 4, Creatinine 0.88, Est GFR (Non- Af Amer) 68, BUN/Creatinine Ratio 4.5 L, Random Glucose 124 H, Calcium 8.6, Triglycerides 43, Cholesterol 156, LDL Cholesterol 73, VLDL Cholesterol 9, HDL Cholesterol 74 H, Cholesterol/HDL Ratio 2.1 L 08/02/20 06:45: WBC 6.3 D, RBC 4.10 L, Hgb 13.9, Hct 41.8, MCV 102.0 H, MCH 33.9 H, MCHC 33.3, RDW 13.7, Plt Count 158, MPV 11.2, Immature Gran % (Auto) 0.30, Immature Gran # (Auto) 0.02, Neutrophils % 69.9, Lymphocytes % 19.6 L, Monocytes % 6.5, Eosinophils % 3.2 H, Basophils % 0.5, Nucleated RBC % 0.0, Neutrophils # 4.4, Lymphocytes # 1.23 L, Monocytes # 0.4, Eosinophils # 0.2, Absolute Basophils 0.0 08/02/20 06:45: Sodium 142, Plasma Sodium 142, Potassium 4.0, Chloride 108 H, Carbon Dioxide 26.5, Anion Gap 11.5, BUN 4, Creatinine 0.80, Est GFR (Non-Af Amer) 76, BUN/Creatinine Ratio 5.0 L, Random Glucose 103, Calcium 8.7 Discharge Location: Home Disposition: Home self-care Condition: Good Face to Face Encounter completed per [facility] Guidelines: No Discharge Activity: Activity as tolerated Discharge Diet: General/regular food Referrals: Bladimir Cunha MD [Primary Care Provider] - Prescriptions (Any new or edited meds): Amox Tr/Potassium Clavulanate [Augmentin 875-125 Tablet] 875 mg PO Q12H 7 Days #14 tab Transmission Status: Pending to [id number] Saccharomyces Boulardii [Florastor] 250 mg PO BID #30 cap Transmission Status: Received by [id number] Complete Home Medications List: Complete Home Medication List: losartan 50 mg tablet 50 mg PO DAILY #90 tab 01/24/20 Amox Tr/Potassium Clavulanate [Augmentin 875-125 Tablet] 875 mg PO Q12H 7 Days #14 tab 08/02/20 Saccharomyces Boulardii [Florastor] 250 mg PO BID #30 cap 08/02/20 Forms: Patient Portal Registration
[2020-08-02] MEDS: PANTOPRAZOLE SODIUM 40 MG in NORMAL SALINE 100 ML IV SCH (10:43)
[2020-08-02] MEDS ORDERED: amLODIPine BESYLATE 5 MG TABLET PO ONE (11:20)
[2020-08-02 14:43] VITALS: BP 144/76
== END 2020-08-02 14:49 | disposition home or self-care (01) | DRG 394 ==
LOC: MS 02:51 → ER 02:51 → MS 08:00
PROVIDERS: ADMIT Family Medicine; ATTEND Internal Medicine
DX: K63.5 Polyp of colon; K55.039 Acute (reversible) ischemia of large intestine, extent unspecified; K29.70 Gastritis, unspecified, without bleeding; K44.9 Diaphragmatic hernia without obstruction or gangrene; I10 Essential (primary) hypertension; D62 Acute posthemorrhagic anemia; I95.9 Hypotension, unspecified; R55 Syncope and collapse; R00.1 Bradycardia, unspecified; K29.80 Duodenitis without bleeding; K21.9 Gastro-esophageal reflux disease without esophagitis